=== PATIENT | male | born 1980 | race American Indian/Alaskan Native ===

== ENCOUNTER 2017-05-04 11:23 | Emergency (ER) | payer OTHER ==
[2017-05-04 12:13] VITALS: BP 124/80
[2017-05-04] MEDS ORDERED: XYLOCAINE MPF 2% INFILTRATI ONE ×2 (13:27)
[2017-05-04] MEDS ORDERED: XYLOCAINE 2% INFILTRATI ONE (13:28)
[2017-05-04] MEDS ORDERED: MOTRIN ONE (14:07)
[2017-05-04] MEDS ORDERED: MOTRIN PO ONE (14:07)
[2017-05-04] MEDS: XYLOCAINE MPF 2% INFILTRATI ONE ×2 (14:15→15:01)
[2017-05-04] MEDS ORDERED: TRIPLE ANTIBIOTIC TP ONE (15:13)
[2017-05-04] MEDS ORDERED: BOOSTRIX IM ONE (15:18)
--- NOTE | 2017-05-04 15:27 | XRay Report ---
FINAL REPORT PROCEDURE: XR FINGER(S) 2+V RT TECHNIQUE: Three views right hand focus on the right 4th finger HISTORY: s/p removal ring right ring finger ? fracture COMPARISON: No prior studies are available for comparison. FINDINGS: Soft tissue swelling right 4th finger without fracture or foreign body IMPRESSION: No fracture
--- NOTE | 2017-05-06 11:09 | Emergency Department Report ---
Entered by SUNNY GABRIEL, acting as scribe for SHELLEY CHUA PA. ED Upper Extremity Inj HPI - General Chief Complaint: Extremity Injury, Upper Stated Complaint: RIGHT RIGN FINGER IS SWOLLEN/RING STUCK Time Seen by Provider: 05/04/17 12:50 Source: patient Mode of arrival: Ambulatory Limitations: No Limitations - History of Present Illness Initial Comments: 36 y/o male presents to the ED c/o right ring finger pain since last night. Associated symptoms include redness and swelling but he denies numbness, tingling, fever, chills, nausea and vomiting. Patient states titanium ring stuck since last nigh and unable to get it off. No alleviating or aggravating factors. NKDA. NICOLE Complaint: Injury to:: finger (right ring finger pain) -: Last night Other Extremity Injury: Fingers: Right (Ring finger ) Other Injuries: none Place: home Improves With: none Worsens With: none Context: other (ring stuck on right ring finger) Associated Symptoms: other (swelling, redness, denies: tingling, fever, chills) . denies: numbness, nausea/vomiting - Related Data Previous Rx's Medication Instructions Recorded Last Taken Type Acetaminophen/Codeine [Tylenol 1 tab PO Q6H PRN #12 tab 05/04/17 Unknown Rx /Codeine # 3 tab] Ibuprofen [Motrin] 800 mg PO Q8HR PRN #30 tablet 05/04/17 Unknown Rx Neomycn/Baci Zn/Pmyx Bs/Pramox 1 applicatio TP BID #1 oint...g. 05/04/17 Unknown Rx [Triple Antibioti-Pain Rlf Oint] Allergies Allergy/AdvReac Type Severity Reaction Status Date / Time shellfish derived Allergy Angioedema Verified 05/04/17 12:17 Sulfa (Sulfonamide Allergy Itching Verified 05/04/17 12:17 Antibiotics) ED Review of Systems Constitutional: denies: chills, fever Gastrointestinal: denies: nausea, vomiting Musculoskeletal: other (ring finger pain, redness, swelling) Neurological: denies: numbness, other (tingling) ED Past Medical Hx - Past Medical History Hx HIV: Yes - Surgical History Hx Appendectomy: Yes - Social History Smoking Status: Former Smoker Substance Use Type: Alcohol, Marijuana - Medications Home Medications: Home Medications Medication Instructions Recorded Confirmed Last Taken Type Acetaminophen/Codeine [Tylenol 1 tab PO Q6H PRN #12 tab 05/04/17 Unknown Rx /Codeine # 3 tab] Ibuprofen [Motrin] 800 mg PO Q8HR PRN #30 tablet 05/04/17 Unknown Rx Neomycn/Baci Zn/Pmyx Bs/Pramox 1 applicatio TP BID #1 oint...g. 05/04/17 Unknown Rx [Triple Antibioti-Pain Rlf Oint] ED Physical Exam - General Limitations: No Limitations General appearance: alert, in no apparent distress - Head Head exam: Present: atraumatic, normocephalic, normal inspection - Eye Eye exam: Present: normal appearance, PERRL, EOMI. Absent: scleral icterus, conjunctival injection, nystagmus, periorbital swelling, periorbital tenderness Pupils: Present: normal accommodation - ENT ENT exam: Present: normal exam, normal orophraynx, mucous membranes moist, TM's normal bilaterally, normal external ear exam - Neck Neck exam: Present: normal inspection, full ROM. Absent: tenderness, meningismus, lymphadenopathy, thyromegaly - Respiratory Respiratory exam: Present: normal lung sounds bilaterally. Absent: respiratory distress, wheezes, rales, rhonchi, stridor, chest wall tenderness, accessory muscle use, decreased breath sounds, prolonged expiratory - Cardiovascular Cardiovascular Exam: Present: regular rate, normal rhythm, normal heart sounds. Absent: bradycardia, tachycardia, irregular rhythm, systolic murmur, diastolic murmur, rubs, gallop - GI/Abdominal GI/Abdominal exam: Present: soft, normal bowel sounds. Absent: distended, tenderness, guarding, rebound, rigid, diminished bowel sounds - Extremities Exam Extremities exam: Present: normal inspection, full ROM, normal capillary refill , other (distal right ring finger swollen, capillary refill intact, sensation intact, metal ring distal to MCP joint) - Expanded Upper Extremity Exam Right General: Present: normal inspection Shoulder Exam: Present: normal inspection, full ROM Upper Arm exam: Present: normal inspection, full ROM Elbow exam: Present: normal inspection, full ROM Forearm Wrist exam: Present: normal inspection, full ROM Hand Wrist exam: Present: normal inspection, full ROM Neuro motor exam: Present: wrist extension intact Vascular: Present: vascular compromise - Back Exam Back exam: Present: normal inspection, full ROM. Absent: tenderness, CVA tenderness (R), CVA tenderness (L), muscle spasm, paraspinal tenderness, vertebral tenderness, rash noted - Neurological Exam Neurological exam: Present: alert, oriented X3, normal gait, reflexes normal - Psychiatric Psychiatric exam: Present: normal affect, normal mood - Skin Skin exam: Present: warm, dry, intact, normal color. Absent: rash ED Course Vital Signs 05/04/17 12:07 Temperature 97.8 F Pulse Rate 70 Respiratory 20 Rate Blood Pressure 124/80 O2 Sat by Pulse 96 Oximetry ED Medical Decision Making - Medical Decision Making A/P: Removal of ring right ring finger 1-ring successfully removed via manual reduction status post digital block ring finger 2-tetanus up-to-date 3-Motrin when necessary 4- finger neurovascularly intact range of motion intact x-ray shows no fractures distal capillary refill less than 1 second. Patient was observed for at least 2-3 hours after removal of ring capillary refill less than 1 second nail bed and distal vascularity range of motion all joints distal finger PIP DIP and MCP fully intact distal sensation intact 5-patient placed in finger splint, triple antibiotic ointment to abrasions ED Disposition Clinical Impression: Foreign body finger Finger sprain Qualifiers: Encounter type: initial encounter Finger: ring finger Sprain of finger site: metacarpophalangeal joint Laterality: right Qualified Code(s): S63.654A - Sprain of metacarpophalangeal joint of right ring finger, initial encounter Disposition: TO HOME OR SELFCARE Is pt being admited?: No Does the pt Need Aspirin: No Condition: Stable Instructions: Soft Tissue Foreign Body (ED), Finger Sprain (ED), RICE Therapy ( ED) Prescriptions: Acetaminophen/Codeine [Tylenol /Codeine # 3 tab] 1 tab PO Q6H PRN #12 tab PRN Reason: Pain Ibuprofen [Motrin] 800 mg PO Q8HR PRN #30 tablet PRN Reason: Pain Neomycn/Baci Zn/Pmyx Bs/Pramox [Triple Antibioti-Pain Rlf Oint] 1 applicatio TP BID #1 oint...g. Referrals: ALEIDA ANTOINE MD [Staff Physician] - 3-5 Days Forms: Work/School Release Form(ED) Time of Disposition: 15:48 This documentation as recorded by the HARVEY ivory ELIZABETH,accurately reflects the service I personally performed and the decisions made by ,SHELLEY CHUA PA.
== END 2017-05-04 16:07 | disposition home or self-care (01) ==
LOC: ED 11:23
DX: S63.614A Unspecified sprain of right ring finger, initial encounter (principal); F12.10 Cannabis abuse, uncomplicated; Z87.891 Personal history of nicotine dependence; Z88.2 Allergy status to sulfonamides; Z91.013 Allergy to seafood; X58.XXXA Exposure to other specified factors, initial encounter; Y93.89 Activity, other specified; Y92.89 Other specified places as the place of occurrence of the external cause; Y99.8 Other external cause status
CPT/HCPCS: 90471; 90715; 96372; 99283; A6250